=== PATIENT | female | born 1985 | race Caucasian/White ===

== ENCOUNTER 2023-01-14 14:10 | Day surgery (SDC) | payer BC | END 2023-01-14 14:35 | disposition home or self-care (01) | LOC: ONC/OP 14:10 | PROVIDERS: ATTEND Internal Medicine Hematology & Oncology | DX: Z48.00 Encounter for change or removal of nonsurgical wound dressing (principal) | CPT/HCPCS: 99211; G0463 ==

== ENCOUNTER 2023-01-18 09:12 | Day surgery (SDC) | payer BC ==
[~2023-01-18 09:12] MED LIST: CYTARABINE IVPB SCH; METHYLPREDNISOLONE SODIUM SUCC IVPB SCH; Ondansetron 2MG/ML MDV 10 MG in Sodium Chloride 0.9% 50 ML IVPB SCH; SODIUM CHLORIDE 0.9% IVPB SCH
[2023-01-18 10:20] VITALS: BP 106/56; TEMP 97.9
== END 2023-01-18 14:30 | disposition home or self-care (01) ==
LOC: ONC/OP 09:12
PROVIDERS: ATTEND Internal Medicine Hematology & Oncology
DX: C92.00 Acute myeloblastic leukemia, not having achieved remission (principal); Z88.1 Allergy status to other antibiotic agents
CPT/HCPCS: 80053; 82248; 83615; 84100; 84550; 96375; 96413; 96415

== ENCOUNTER 2023-01-19 08:30 | Day surgery (SDC) | payer BC ==
[~2023-01-19 08:30] MED LIST changes: +ADMIXTURE FEE IVPB SCH; +METHYLPREDNISOLONE SOD SUCC IVPB SCH; +Ondansetron HCl/PF 10 MG in Sodium Chloride 0.9% 50 ML IVPB SCH; +[UNRECOGNIZED DRUG - OTHER] IVPB SCH; +[UNRECOGNIZED DRUG - OTHER] IVPB SCH
[2023-01-19 09:04] VITALS: BP 114/68; TEMP 98.2
== END 2023-01-19 14:00 | disposition home or self-care (01) ==
LOC: ONC/OP 08:30
PROVIDERS: ATTEND Internal Medicine Hematology & Oncology
DX: C92.00 Acute myeloblastic leukemia, not having achieved remission (principal)
CPT/HCPCS: 96367; 96413; 96415; J1642; J2405; J2920; J3490; J7030; J9100

== ENCOUNTER 2023-01-20 08:38 | Day surgery (SDC) | payer BC ==
[~2023-01-20 08:38] MED LIST changes: -ADMIXTURE FEE IVPB SCH; -METHYLPREDNISOLONE SOD SUCC IVPB SCH; -Ondansetron HCl/PF 10 MG in Sodium Chloride 0.9% 50 ML IVPB SCH; -[UNRECOGNIZED DRUG - OTHER] IVPB SCH; -[UNRECOGNIZED DRUG - OTHER] IVPB SCH
[2023-01-20] MEDS ORDERED: [UNRECOGNIZED DRUG - OTHER] IVPB SCH (09:00)
[2023-01-20] MEDS ORDERED: METHYLPREDNISOLONE SODIUM SUCC IVPB SCH (09:00)
[2023-01-20] MEDS ORDERED: ADMIXTURE FEE IVPB SCH (09:00)
[2023-01-20 09:58] VITALS: BP 113/58; TEMP 98.2
[2023-01-20 10:39] LABS: #Monocytes 0.4 thou/uL (0.11-0.59); #Neutrophils 3.5 thou/uL (1.40-6.50); %Basophils 0.5 % (0.0-1.0); %Lymphocytes 3.9 % (21.0-51.0); %Monocytes 9.1 % (0.0-10.0); %Neutrophils 86.3 % (42.0-75.0); Hematocrit 34.9 % (36.0-47.0); Hemoglobin 11.7 g/dL (12.0-16.0); Mean Corpuscular HGB CONC 33.5 g/dL (32.0-36.0); Mean Corpuscular Hemoglobin 33.5 pg (27.0-31.0); Mean Platelet Volume 10.4 fL (7.4-10.4); Platelet Count 175 10x3/uL (130-400); RBC Distribution Width 17.7 % (11.5-14.5); Red Blood Cell (RBC) Count 3.49 mill/uL (4.20-5.40); White Blood Cell (WBC) Count 4.1 10x3/uL (4.8-10.8)
[2023-01-20 11:11] LABS: ALT (SGPT) 25 U/L (8-55); AST (SGOT) 22 U/L (5-34); Alkaline Phosphatase 48 U/L (40-110); Anion Gap 16 mmol/L (10-20); BUN (Urea Nitrogen) 11 mg/dL (7.0-18.7); Bilirubin, Total 0.7 mg/dL (0.2-1.2); Calc. Creatinine Clearance 0 mL/min (70-130); Calcium 8.7 mg/dL (7.8-10.44); Carbon Dioxide 25 mmol/L (22-29); Chloride 102 mmol/L (98-107); Estimated GFR 115; Globulin 2.7 g/dL (2.4-3.5); Glucose 106 mg/dL (70-105); Potassium 3.5 mmol/L (3.5-5.1); Protein, Total 6.7 g/dL (6.0-8.3); Sodium 139 mmol/L (136-145)
== END 2023-01-20 15:02 | disposition home or self-care (01) ==
LOC: ONC/OP 08:38
PROVIDERS: ATTEND Internal Medicine Hematology & Oncology
DX: C92.00 Acute myeloblastic leukemia, not having achieved remission (principal); Z88.1 Allergy status to other antibiotic agents
CPT/HCPCS: 80053; 85025; 96367; 96413; 96415; J2405; J2920; J3490; J7030; J9100

== ENCOUNTER 2023-02-04 08:47 | Day surgery (SDC) | payer BC ==
[2023-02-04] MEDS ORDERED: Acetaminophen 500 MG TAB PO SCH (09:15)
[2023-02-04] MEDS ORDERED: diphenhydrAMINE 25 MG CAP PO SCH (09:15)
[2023-02-04] MEDS ORDERED: Acetaminophen 500 MG TAB ONE (09:19)
[2023-02-04 10:34] VITALS: TEMP 98.7
[2023-02-04 13:48] VITALS: BP 108/63
== END 2023-02-04 13:24 | disposition home or self-care (01) ==
LOC: ONC/OP 08:47
PROVIDERS: ATTEND Internal Medicine Hematology & Oncology
DX: D64.9 Anemia, unspecified (principal); D69.59 Other secondary thrombocytopenia
CPT/HCPCS: 36430; 86850; 86900; 86901; 99212; G0463; P9016

== ENCOUNTER 2023-02-15 09:23 | Inpatient (IN) | payer BC ==
[2023-02-15] MEDS ORDERED: Ondansetron ODT 4 MG TAB PO PRN (10:05)
[2023-02-15] MEDS ORDERED: Calcium Carbonate 500 MG ChewTAB PO PRN (10:05)
[2023-02-15] MEDS ORDERED: Senokot S 8.6-50 MG TAB PO PRN (10:05)
[2023-02-15 11:26] LABS: Hematocrit 26.4 % (36.0-47.0); Hemoglobin 9.1 g/dL (12.0-16.0); Manual Diff?? YES; Mean Corpuscular HGB CONC 34.5 g/dL (32.0-36.0); Mean Corpuscular Hemoglobin 35.3 pg (27.0-31.0); Mean Corpuscular Volume 102.3 fl (78.0-98.0); Mean Platelet Volume 10.2 fL (7.4-10.4); Platelet Count 232 10x3/uL (130-400); RBC Distribution Width 20.2 % (11.5-14.5); Red Blood Cell (RBC) Count 2.58 mill/uL (4.20-5.40)
[2023-02-15 11:31] LABS: Delete Auto Diff?? YES
[2023-02-15 11:47] LABS: ALT (SGPT) 53 U/L (8-55); AST (SGOT) 35 U/L (5-34); Albumin 4.2 g/dL (3.5-5.0); Alkaline Phosphatase 62 U/L (40-110); Anion Gap 13 mmol/L (10-20); BUN (Urea Nitrogen) 6 mg/dL (7.0-18.7); Bilirubin, Total 0.2 mg/dL (0.2-1.2); Calc. Creatinine Clearance 152 mL/min (70-130); Carbon Dioxide 25 mmol/L (22-29); Chloride 105 mmol/L (98-107); Estimated GFR 117; Globulin 2.3 g/dL (2.4-3.5); Glucose 115 mg/dL (70-105); Potassium 3.6 mmol/L (3.5-5.1); Protein, Total 6.5 g/dL (6.0-8.3); Sodium 139 mmol/L (136-145); Uric Acid 4.2 mg/dL (2.6-6.0)
[2023-02-15 12:02] LABS: Anisocytosis SLIGHT = 6-15 cells HPF (0-5); Band 9 % (5-11); CellaVision Operator ID LAB.MJL; Eosinophils 1 % (0-10); Large Platelets 3.9 % (0-5); Lymphocytes 23 % (21-51); Macrocytosis SLIGHT = 6-15 cells HPF (0-5); Monocytes 22 % (0-10); Neutrophil 44 % (42-75); Nucleated RBC (Manual Ct) 1 % (0); Ovalocytes SLIGHT = 2-5 cells HPF (0-1); Platelet Adequacy Comment Platelets Normal; Poikilocytosis SLIGHT = 6-15 cells HPF (0-5); Polychromasia SLIGHT = 2-3 cells HPF (0-2); Reactive Lymphocytes 1 % (0-10); Tear Drops SLIGHT = 2-5 cells HPF (0-1); Total Cell Count 102
[2023-02-15] MEDS: METHYLPREDNISOLONE SODIUM SUCC IVPB SCH (13:18)
[2023-02-15] MEDS: SODIUM CHLORIDE 0.9% IVPB SCH ×2 (13:18→14:41)
[2023-02-15] MEDS: Ondansetron 2MG/ML MDV 10 MG in Sodium Chloride 0.9% 50 ML IVPB SCH (13:50)
[2023-02-15] MEDS: CYTARABINE IVPB SCH (14:41)
[2023-02-15] MEDS ORDERED: Acetaminophen 325 MG TAB PO PRN (15:55)
[2023-02-15] MEDS ORDERED: hydrOXYzine 25 MG TAB PO PRN (16:00)
[2023-02-15] MEDS ORDERED: HYDROcodone/Acetaminophen 5/325 mg Tablet PO PRN (16:00)
[2023-02-15] MEDS: Acyclovir 800 mg Tablet PO SCH (20:57)
[2023-02-15] MEDS: Cyanocobalamin (Vitamin B-12) 1,000 MCG TAB PO SCH (20:57)
[2023-02-15] MEDS: Folic Acid 1 MG TAB PO SCH (20:57)
[2023-02-15] MEDS: traMADol HCl 50 MG TAB PO PRN (20:58)
[2023-02-15] MEDS: Multivit, Therapeutic 1 TAB PO SCH (20:58)
[2023-02-15] MEDS: traZODone HCl 50 MG TAB PO SCH (21:01)
[2023-02-15] MEDS: Acetaminophen 325 MG TAB PO PRN (23:11)
[2023-02-16] MEDS: Ondansetron PF 4 MG/2 ML Vial IVP PRN (03:35)
[2023-02-16] MEDS: CYTARABINE IVPB SCH ×2 (03:38→16:03)
[2023-02-16] MEDS: SODIUM CHLORIDE 0.9% IVPB SCH ×3 (03:38→16:03)
[2023-02-16] MEDS ORDERED: Sevoflurane 250 ML INH ANEST BOTTLE ONE (04:19)
[2023-02-16] MEDS: LevoFLOXacin 500 MG TAB PO SCH (06:29)
[2023-02-16] MEDS: Levothyroxine 175 MCG TAB PO SCH (06:29)
[2023-02-16 07:15] LABS: #Monocytes 0.7 thou/uL (0.11-0.59); #Neutrophils 2.8 thou/uL (1.40-6.50); %Lymphocytes 6.2 % (21.0-51.0); %Monocytes 17.5 % (0.0-10.0); %Neutrophils 75.8 % (42.0-75.0); Hemoglobin 8.7 g/dL (12.0-16.0); Mean Corpuscular HGB CONC 34.8 g/dL (32.0-36.0); Mean Corpuscular Hemoglobin 35.2 pg (27.0-31.0); Mean Corpuscular Volume 101.2 fl (78.0-98.0); Mean Platelet Volume 10.2 fL (7.4-10.4); Platelet Count 215 10x3/uL (130-400); RBC Distribution Width 20.6 % (11.5-14.5); Red Blood Cell (RBC) Count 2.47 mill/uL (4.20-5.40); White Blood Cell (WBC) Count 3.7 10x3/uL (4.8-10.8)
[2023-02-16 07:55] LABS: Anion Gap 13 mmol/L (10-20); BUN (Urea Nitrogen) 6 mg/dL (7.0-18.7); Calc. Creatinine Clearance 174 mL/min (70-130); Calcium 8.9 mg/dL (7.8-10.44); Carbon Dioxide 24 mmol/L (22-29); Chloride 109 mmol/L (98-107); Estimated GFR 121; Glucose 98 mg/dL (70-105); Potassium 3.9 mmol/L (3.5-5.1); Sodium 142 mmol/L (136-145)
[2023-02-16] MEDS: Acetaminophen 325 MG TAB PO PRN (08:10)
[2023-02-16] MEDS: Citalopram 20 MG TAB PO SCH (08:10)
[2023-02-16] MEDS: Loratadine 10 MG TAB PO SCH (08:10)
[2023-02-16] MEDS: Montelukast Sodium 10 mg Tablet PO SCH (08:10)
[2023-02-16] MEDS: Acyclovir 800 mg Tablet PO SCH ×2 (08:11→19:54)
[2023-02-16] MEDS: traMADol HCl 50 MG TAB PO PRN ×2 (08:17→19:55)
[2023-02-16 10:49] VITALS: BMI 28.9
[2023-02-16] MEDS: Ondansetron 2MG/ML MDV 10 MG in Sodium Chloride 0.9% 50 ML IVPB SCH (14:43)
[2023-02-16] MEDS: METHYLPREDNISOLONE SODIUM SUCC IVPB SCH (15:26)
[2023-02-16] MEDS: Multivit, Therapeutic 1 TAB PO SCH (19:54)
[2023-02-16] MEDS: Cyanocobalamin (Vitamin B-12) 1,000 MCG TAB PO SCH (19:54)
[2023-02-16] MEDS: Folic Acid 1 MG TAB PO SCH (19:54)
[2023-02-16] MEDS: traZODone HCl 50 MG TAB PO SCH (19:55)
[2023-02-16] MEDS: Prochlorperazine Maleate 5 MG TAB PO PRN (22:14)
[2023-02-17] MEDS: Ondansetron PF 4 MG/2 ML Vial IVP PRN (03:50)
[2023-02-17] MEDS: CYTARABINE IVPB SCH ×2 (03:50→15:43)
[2023-02-17] MEDS: SODIUM CHLORIDE 0.9% IVPB SCH ×3 (03:50→15:43)
[2023-02-17] MEDS: Levothyroxine 175 MCG TAB PO SCH (05:41)
[2023-02-17] MEDS: LevoFLOXacin 500 MG TAB PO SCH (05:41)
[2023-02-17] MEDS: Acetaminophen 325 MG TAB PO PRN ×2 (07:49→17:54)
[2023-02-17] MEDS: traMADol HCl 50 MG TAB PO PRN ×2 (08:31→20:58)
[2023-02-17] MEDS: Loratadine 10 MG TAB PO SCH (08:31)
[2023-02-17] MEDS: Montelukast Sodium 10 mg Tablet PO SCH (08:31)
[2023-02-17] MEDS: Citalopram 20 MG TAB PO SCH (08:31)
[2023-02-17] MEDS: Acyclovir 800 mg Tablet PO SCH ×2 (08:31→21:00)
[2023-02-17] MEDS ORDERED: HYDROcodone/Acetaminophen 7.5/325 mg Tablet PO PRN (10:24)
[2023-02-17] MEDS: Ondansetron 2MG/ML MDV 10 MG in Sodium Chloride 0.9% 50 ML IVPB SCH (14:21)
[2023-02-17] MEDS: METHYLPREDNISOLONE SODIUM SUCC IVPB SCH (14:58)
[2023-02-17] MEDS: traZODone HCl 50 MG TAB PO SCH (20:58)
[2023-02-17] MEDS: Folic Acid 1 MG TAB PO SCH (20:58)
[2023-02-17] MEDS: Cyanocobalamin (Vitamin B-12) 1,000 MCG TAB PO SCH (21:00)
[2023-02-17] MEDS: Multivit, Therapeutic 1 TAB PO SCH (21:00)
[2023-02-18] MEDS ORDERED: PEGFILGRASTIM-JMDB 6 MG/0.6 ML SYRINGE SQ SCH (00:01)
[2023-02-18] MEDS: SODIUM CHLORIDE 0.9% IVPB SCH (04:08)
[2023-02-18] MEDS: Ondansetron PF 4 MG/2 ML Vial IVP PRN (04:08)
[2023-02-18] MEDS: CYTARABINE IVPB SCH (04:08)
[2023-02-18] MEDS: traMADol HCl 50 MG TAB PO PRN (04:50)
[2023-02-18] MEDS: Levothyroxine 175 MCG TAB PO SCH (06:02)
[2023-02-18] MEDS: LevoFLOXacin 500 MG TAB PO SCH (06:02)
[2023-02-18 07:50] LABS: #Neutrophils 3.3 thou/uL (1.40-6.50); %Lymphocytes 1.2 % (21.0-51.0); %Monocytes 0.3 % (0.0-10.0); %Neutrophils 97.9 % (42.0-75.0); Hematocrit 24.6 % (36.0-47.0); Hemoglobin 8.6 g/dL (12.0-16.0); Mean Corpuscular Hemoglobin 35.7 pg (27.0-31.0); Mean Corpuscular Volume 102.1 fl (78.0-98.0); Mean Platelet Volume 10.4 fL (7.4-10.4); Platelet Count 141 10x3/uL (130-400); RBC Distribution Width 19.7 % (11.5-14.5); Red Blood Cell (RBC) Count 2.41 mill/uL (4.20-5.40); White Blood Cell (WBC) Count 3.3 10x3/uL (4.8-10.8)
[2023-02-18 08:15] LABS: ALT (SGPT) 32 U/L (8-55); AST (SGOT) 24 U/L (5-34); Albumin 4.1 g/dL (3.5-5.0); Alkaline Phosphatase 53 U/L (40-110); Anion Gap 12 mmol/L (10-20); BUN (Urea Nitrogen) 7 mg/dL (7.0-18.7); Bilirubin, Total 0.5 mg/dL (0.2-1.2); Calc. Creatinine Clearance 181 mL/min (70-130); Calcium 8.7 mg/dL (7.8-10.44); Carbon Dioxide 24 mmol/L (22-29); Chloride 107 mmol/L (98-107); Estimated GFR 122; Globulin 2.1 g/dL (2.4-3.5); Glucose 85 mg/dL (70-105); Potassium 3.4 mmol/L (3.5-5.1); Protein, Total 6.2 g/dL (6.0-8.3); Sodium 140 mmol/L (136-145)
[2023-02-18] MEDS: Prochlorperazine Maleate 5 MG TAB PO PRN (08:30)
[2023-02-18 09:25] VITALS: BP 115/73; TEMP 98.2
[2023-02-18] MEDS: Loratadine 10 MG TAB PO SCH (10:01)
[2023-02-18] MEDS: Acyclovir 800 mg Tablet PO SCH (10:01)
[2023-02-18] MEDS: Montelukast Sodium 10 mg Tablet PO SCH (10:01)
[2023-02-18] MEDS: Citalopram 20 MG TAB PO SCH (10:01)
[2023-02-18] MEDS: Acetaminophen 325 MG TAB PO PRN (10:09)
[2023-02-18] MEDS ORDERED: Potassium Chloride 20 MEQ TAB PO SCH (11:15)
== END 2023-02-18 11:07 | disposition home or self-care (01) | DRG 838 ==
LOC: SURG B 09:23
PROVIDERS: ADMIT Internal Medicine; ATTEND Internal Medicine
DX: Z51.11 Encounter for antineoplastic chemotherapy (principal); C92.00 Acute myeloblastic leukemia, not having achieved remission; Q79.60 Ehlers-Danlos syndrome, unspecified; C73 Malignant neoplasm of thyroid gland; F41.9 Anxiety disorder, unspecified; J45.909 Unspecified asthma, uncomplicated; K21.9 Gastro-esophageal reflux disease without esophagitis; E03.9 Hypothyroidism, unspecified; D70.1 Agranulocytosis secondary to cancer chemotherapy; T45.1X5A Adverse effect of antineoplastic and immunosuppressive drugs, initial encounter; Z88.1 Allergy status to other antibiotic agents; Z88.8 Allergy status to other drugs, medicaments and biological substances; Z98.890 Other specified postprocedural states
CPT/HCPCS: 80048; 80053; 83615; 84550; 85025; J2405; J2920; J3490; J7050; J9100; Q0164

== ENCOUNTER 2023-02-23 11:36 | Day surgery (SDC) | payer BC ==
[2023-02-23] MEDS ORDERED: diphenhydrAMINE 25 MG CAP PO SCH (12:00)
[2023-02-23] MEDS ORDERED: Acetaminophen 500 MG TAB PO SCH (12:00)
[2023-02-23] MEDS ORDERED: Acetaminophen 500 MG TAB ONE (12:12)
[2023-02-23 14:46] VITALS: BP 105/53; TEMP 98.2
== END 2023-02-23 15:00 | disposition home or self-care (01) ==
LOC: ONC/OP 11:36
PROVIDERS: ATTEND Internal Medicine Hematology & Oncology
DX: D69.6 Thrombocytopenia, unspecified (principal)
CPT/HCPCS: 36430; 86850; 86900; 86901; P9035

== ENCOUNTER 2023-02-25 12:01 | Day surgery (SDC) | payer BC ==
[2023-02-25] MEDS ORDERED: Acetaminophen 500 MG TAB PO SCH (12:15)
[2023-02-25] MEDS ORDERED: diphenhydrAMINE 25 MG CAP PO SCH (12:15)
[2023-02-25] MEDS ORDERED: Acetaminophen 500 MG TAB ONE (12:52)
[2023-02-25 16:52] VITALS: TEMP 98.4
[2023-02-25 17:40] VITALS: BP 105/51
[2023-02-25] MEDS ORDERED: FLU VACC QS2023-24(6MOS UP)/PF 60 MCG/0.5 ML SYRINGE IM ONE (18:00)
== END 2023-02-25 17:44 | disposition home or self-care (01) ==
LOC: ONC/OP 12:01
PROVIDERS: ATTEND Internal Medicine Hematology & Oncology
DX: D64.9 Anemia, unspecified (principal); D69.6 Thrombocytopenia, unspecified; Z88.0 Allergy status to penicillin; Z88.1 Allergy status to other antibiotic agents
CPT/HCPCS: 36430; 86850; 86900; 86901; P9016; P9035

== ENCOUNTER 2023-02-28 08:45 | Day surgery (SDC) | payer BC ==
[2023-02-28] MEDS ORDERED: Acetaminophen 500 MG TAB PO SCH (09:15)
[2023-02-28] MEDS ORDERED: diphenhydrAMINE 25 MG CAP PO SCH (09:15)
[2023-02-28] MEDS ORDERED: Acetaminophen 500 MG TAB ONE (09:21)
[2023-02-28 14:31] VITALS: BP 103/56; TEMP 98.3
== END 2023-02-28 13:41 | disposition home or self-care (01) ==
LOC: ONC/OP 08:45
PROVIDERS: ATTEND Internal Medicine Hematology & Oncology
DX: D64.9 Anemia, unspecified (principal); D69.59 Other secondary thrombocytopenia
CPT/HCPCS: 36430; 86850; 86900; 86901; P9016; P9035

== ENCOUNTER 2023-03-04 09:00 | Day surgery (SDC) | payer BC ==
[2023-03-04] MEDS ORDERED: Acetaminophen 500 MG TAB PO SCH (09:45)
[2023-03-04] MEDS ORDERED: diphenhydrAMINE 25 MG CAP PO SCH (09:45)
[2023-03-04 11:06] VITALS: BP 98/49; TEMP 98.1
== END 2023-03-04 11:12 | disposition home or self-care (01) ==
LOC: ONC/OP 09:00
PROVIDERS: ATTEND Internal Medicine Hematology & Oncology
DX: D64.9 Anemia, unspecified (principal); D69.59 Other secondary thrombocytopenia
CPT/HCPCS: 36430; 86850; 86900; 86901; P9035

== ENCOUNTER 2023-03-07 08:54 | Day surgery (SDC) | payer BC ==
[2023-03-07] MEDS ORDERED: Acetaminophen 500 MG TAB ONE (09:52)
[2023-03-07] MEDS ORDERED: Acetaminophen 500 MG TAB PO SCH (10:00)
[2023-03-07] MEDS ORDERED: diphenhydrAMINE 25 MG CAP PO SCH (10:00)
[2023-03-07 12:19] VITALS: TEMP 99
[2023-03-07 12:46] VITALS: BP 114/55
== END 2023-03-07 12:47 | disposition home or self-care (01) ==
LOC: ONC/OP 08:54
PROVIDERS: ATTEND Internal Medicine Hematology & Oncology
DX: D64.9 Anemia, unspecified (principal); D69.59 Other secondary thrombocytopenia
CPT/HCPCS: 36430; 86850; 86900; 86901; P9016

== ENCOUNTER 2023-03-15 09:25 | Inpatient (IN) | payer BC ==
[2023-03-15 10:13] LABS: #Neutrophils 1.4 thou/uL (1.40-6.50); %Basophils 0.4 % (0.0-1.0); %Eosinophils 0.4 % (0.0-10.0); %Lymphocytes 14.1 % (21.0-51.0); %Monocytes 35.6 % (0.0-10.0); %Neutrophils 48.8 % (42.0-75.0); Hematocrit 26.7 % (36.0-47.0); Manual Diff?? YES; Mean Corpuscular HGB CONC 33.7 g/dL (32.0-36.0); Mean Corpuscular Hemoglobin 34.9 pg (27.0-31.0); Mean Corpuscular Volume 103.5 fl (78.0-98.0); Mean Platelet Volume 10.9 fL (7.4-10.4); Platelet Count 193 10x3/uL (130-400); RBC Distribution Width 20.6 % (11.5-14.5); Red Blood Cell (RBC) Count 2.58 mill/uL (4.20-5.40); White Blood Cell (WBC) Count 2.8 10x3/uL (4.8-10.8)
[2023-03-15] MEDS ORDERED: Acetaminophen 325 MG TAB PO PRN (10:17)
[2023-03-15] MEDS ORDERED: hydrOXYzine 25 MG TAB PO PRN (10:26)
[2023-03-15] MEDS ORDERED: HYDROcodone/Acetaminophen 5/325 mg Tablet PO PRN (10:29)
[2023-03-15 10:37] LABS: ALT (SGPT) 15 U/L (8-55); AST (SGOT) 20 U/L (5-34); Albumin 4.5 g/dL (3.5-5.0); Alkaline Phosphatase 54 U/L (40-110); Anion Gap 12 mmol/L (10-20); BUN (Urea Nitrogen) 6 mg/dL (7.0-18.7); Bilirubin, Total 0.4 mg/dL (0.2-1.2); Calc. Creatinine Clearance 0 mL/min (70-130); Calcium 8.8 mg/dL (7.8-10.44); Carbon Dioxide 22 mmol/L (22-29); Chloride 108 mmol/L (98-107); Estimated GFR 115; Globulin 2.5 g/dL (2.4-3.5); Glucose 85 mg/dL (70-105); Sodium 138 mmol/L (136-145); Uric Acid 4.7 mg/dL (2.6-6.0)
[2023-03-15 11:23] LABS: Anisocytosis MODERATE=16-30 cells HPF (0-5); Band 2 % (5-11); CellaVision Operator ID LAB.GE; Lymphocytes 19 % (21-51); Monocytes 33 % (0-10); Neutrophil 46 % (42-75); Platelet Adequacy Comment Platelets Normal; Polychromasia MODERATE = 3-4 cells HPF (0-2); Reactive Lymphocytes 1 % (0-10); Total Cell Count 101
[2023-03-15] MEDS: Ondansetron 2MG/ML MDV 10 MG in Sodium Chloride 0.9% 50 ML IVPB SCH (13:42)
[2023-03-15] MEDS: [UNRECOGNIZED DRUG - OTHER] IVPB SCH (14:16)
[2023-03-15] MEDS: METHYLPREDNISOLONE SODIUM SUCC IVPB SCH (14:16)
[2023-03-15] MEDS: ADMIXTURE FEE IVPB SCH (14:16)
[2023-03-15] MEDS: SODIUM CHLORIDE 0.9% IVPB SCH (15:08)
[2023-03-15] MEDS: CYTARABINE IVPB SCH (15:08)
[2023-03-15] MEDS: Acyclovir 800 mg Tablet PO SCH (21:26)
[2023-03-15] MEDS: traMADol HCl 50 MG TAB PO PRN (21:26)
[2023-03-15] MEDS: traZODone HCl 50 MG TAB PO SCH (21:26)
[2023-03-16] MEDS: Ondansetron PF 4 MG/2 ML Vial IVP PRN (03:34)
[2023-03-16] MEDS: CYTARABINE IVPB SCH ×2 (03:34→16:59)
[2023-03-16] MEDS: SODIUM CHLORIDE 0.9% IVPB SCH ×2 (03:34→16:59)
[2023-03-16] MEDS: Levothyroxine 175 MCG TAB PO SCH (06:15)
[2023-03-16] MEDS: traMADol HCl 50 MG TAB PO PRN ×2 (06:15→18:45)
[2023-03-16 07:18] LABS: #Monocytes 0.6 thou/uL (0.11-0.59); %Basophils 0.1 % (0.0-1.0); %Monocytes 8.8 % (0.0-10.0); %Neutrophils 88.5 % (42.0-75.0); Hematocrit 25.1 % (36.0-47.0); Hemoglobin 8.5 g/dL (12.0-16.0); Mean Corpuscular HGB CONC 33.9 g/dL (32.0-36.0); Mean Corpuscular Hemoglobin 35.3 pg (27.0-31.0); Mean Corpuscular Volume 104.1 fl (78.0-98.0); Mean Platelet Volume 10.9 fL (7.4-10.4); Platelet Count 184 10x3/uL (130-400); RBC Distribution Width 20.6 % (11.5-14.5); Red Blood Cell (RBC) Count 2.41 mill/uL (4.20-5.40); White Blood Cell (WBC) Count 6.8 10x3/uL (4.8-10.8)
[2023-03-16 07:41] LABS: ALT (SGPT) 13 U/L (8-55); AST (SGOT) 16 U/L (5-34); Albumin 4.1 g/dL (3.5-5.0); Alkaline Phosphatase 50 U/L (40-110); Anion Gap 11 mmol/L (10-20); BUN (Urea Nitrogen) 7 mg/dL (7.0-18.7); Bilirubin, Total 0.4 mg/dL (0.2-1.2); Calc. Creatinine Clearance 153 mL/min (70-130); Calcium 8.3 mg/dL (7.8-10.44); Carbon Dioxide 22 mmol/L (22-29); Chloride 112 mmol/L (98-107); Estimated GFR 116; Globulin 2.2 g/dL (2.4-3.5); Glucose 159 mg/dL (70-105); Potassium 3.8 mmol/L (3.5-5.1); Protein, Total 6.3 g/dL (6.0-8.3); Sodium 141 mmol/L (136-145); Uric Acid 4.9 mg/dL (2.6-6.0)
[2023-03-16] MEDS: Montelukast Sodium 10 mg Tablet PO SCH (09:08)
[2023-03-16] MEDS: Loratadine 10 MG TAB PO SCH (09:08)
[2023-03-16] MEDS: Citalopram 20 MG TAB PO SCH (09:08)
[2023-03-16] MEDS: Acyclovir 800 mg Tablet PO SCH ×2 (09:39→21:21)
[2023-03-16] MEDS: Ondansetron 2MG/ML MDV 10 MG in Sodium Chloride 0.9% 50 ML IVPB SCH (15:30)
[2023-03-16] MEDS: [UNRECOGNIZED DRUG - OTHER] IVPB SCH (16:15)
[2023-03-16] MEDS: ADMIXTURE FEE IVPB SCH (16:15)
[2023-03-16] MEDS: METHYLPREDNISOLONE SODIUM SUCC IVPB SCH (16:15)
[2023-03-16] MEDS: traZODone HCl 50 MG TAB PO SCH (21:21)
[2023-03-16] MEDS: Prochlorperazine Maleate 5 MG TAB PO PRN (21:21)
[2023-03-17] MEDS ORDERED: Calcium Carbonate 500 MG ChewTAB PO PRN (00:23)
[2023-03-17] MEDS: Ondansetron PF 4 MG/2 ML Vial IVP PRN (04:28)
[2023-03-17] MEDS: SODIUM CHLORIDE 0.9% IVPB SCH ×2 (04:29→16:02)
[2023-03-17] MEDS: CYTARABINE IVPB SCH ×2 (04:29→16:02)
[2023-03-17] MEDS: Levothyroxine 175 MCG TAB PO SCH (05:23)
[2023-03-17] MEDS: traMADol HCl 50 MG TAB PO PRN ×3 (05:23→22:02)
[2023-03-17 08:17] LABS: #Monocytes 0.2 thou/uL (0.11-0.59); #Neutrophils 2.8 thou/uL (1.40-6.50); %Lymphocytes 1.6 % (21.0-51.0); %Monocytes 5.6 % (0.0-10.0); %Neutrophils 92.1 % (42.0-75.0); Hematocrit 24.6 % (36.0-47.0); Hemoglobin 8.4 g/dL (12.0-16.0); Mean Corpuscular HGB CONC 34.1 g/dL (32.0-36.0); Mean Corpuscular Hemoglobin 35.7 pg (27.0-31.0); Mean Corpuscular Volume 104.7 fl (78.0-98.0); Mean Platelet Volume 10.9 fL (7.4-10.4); Platelet Count 153 10x3/uL (130-400); RBC Distribution Width 20.2 % (11.5-14.5); Red Blood Cell (RBC) Count 2.35 mill/uL (4.20-5.40); White Blood Cell (WBC) Count 3.1 10x3/uL (4.8-10.8)
[2023-03-17 08:39] LABS: ALT (SGPT) 17 U/L (8-55); AST (SGOT) 17 U/L (5-34); Albumin 4.2 g/dL (3.5-5.0); Alkaline Phosphatase 46 U/L (40-110); Anion Gap 12 mmol/L (10-20); BUN (Urea Nitrogen) 7 mg/dL (7.0-18.7); Bilirubin, Total 0.8 mg/dL (0.2-1.2); Calc. Creatinine Clearance 169 mL/min (70-130); Calcium 8.4 mg/dL (7.8-10.44); Carbon Dioxide 23 mmol/L (22-29); Chloride 109 mmol/L (98-107); Estimated GFR 119; Globulin 2.1 g/dL (2.4-3.5); Glucose 90 mg/dL (70-105); Protein, Total 6.3 g/dL (6.0-8.3); Sodium 140 mmol/L (136-145); Uric Acid 4.1 mg/dL (2.6-6.0)
[2023-03-17] MEDS ORDERED: NORETHINDRONE ACETATE 5 MG PO SCH (09:00)
[2023-03-17] MEDS: Loratadine 10 MG TAB PO SCH (09:06)
[2023-03-17] MEDS: Montelukast Sodium 10 mg Tablet PO SCH (09:06)
[2023-03-17] MEDS: Acyclovir 800 mg Tablet PO SCH ×2 (09:06→21:59)
[2023-03-17] MEDS: Citalopram 20 MG TAB PO SCH (09:06)
[2023-03-17] MEDS: Prochlorperazine Maleate 5 MG TAB PO PRN ×2 (10:58→21:59)
[2023-03-17] MEDS: Ondansetron 2MG/ML MDV 10 MG in Sodium Chloride 0.9% 50 ML IVPB SCH (15:00)
[2023-03-17] MEDS: ADMIXTURE FEE IVPB SCH (15:28)
[2023-03-17] MEDS: [UNRECOGNIZED DRUG - OTHER] IVPB SCH (15:28)
[2023-03-17] MEDS: METHYLPREDNISOLONE SODIUM SUCC IVPB SCH (15:28)
[2023-03-17] MEDS: traZODone HCl 50 MG TAB PO SCH (21:59)
[2023-03-18] MEDS ORDERED: PEGFILGRASTIM-JMDB 6 MG/0.6 ML SYRINGE SQ SCH (00:01)
[2023-03-18] MEDS: CYTARABINE IVPB SCH (04:56)
[2023-03-18] MEDS: Ondansetron PF 4 MG/2 ML Vial IVP PRN (04:56)
[2023-03-18] MEDS: SODIUM CHLORIDE 0.9% IVPB SCH (04:56)
[2023-03-18] MEDS ORDERED: CYTARABINE IVPB SCH (05:00)
[2023-03-18] MEDS ORDERED: SODIUM CHLORIDE 0.9% IVPB SCH (05:00)
[2023-03-18] MEDS: traMADol HCl 50 MG TAB PO PRN (05:05)
[2023-03-18] MEDS: Levothyroxine 175 MCG TAB PO SCH (05:05)
[2023-03-18 05:25] LABS: ALT (SGPT) 19 U/L (8-55); AST (SGOT) 19 U/L (5-34); Alkaline Phosphatase 47 U/L (40-110); Anion Gap 11 mmol/L (10-20); BUN (Urea Nitrogen) 6 mg/dL (7.0-18.7); Bilirubin, Total 0.9 mg/dL (0.2-1.2); Calc. Creatinine Clearance 163 mL/min (70-130); Calcium 8.6 mg/dL (7.8-10.44); Carbon Dioxide 24 mmol/L (22-29); Chloride 108 mmol/L (98-107); Estimated GFR 118; Globulin 2.5 g/dL (2.4-3.5); Glucose 100 mg/dL (70-105); Potassium 3.8 mmol/L (3.5-5.1); Protein, Total 6.5 g/dL (6.0-8.3); Sodium 139 mmol/L (136-145)
[2023-03-18 07:16] LABS: #Neutrophils 3.1 thou/uL (1.40-6.50); %Lymphocytes 1.3 % (21.0-51.0); %Neutrophils 98.4 % (42.0-75.0); Hematocrit 24.4 % (36.0-47.0); Hemoglobin 8.3 g/dL (12.0-16.0); Mean Corpuscular Hemoglobin 35.8 pg (27.0-31.0); Mean Corpuscular Volume 105.2 fl (78.0-98.0); Mean Platelet Volume 10.8 fL (7.4-10.4); Platelet Count 138 10x3/uL (130-400); RBC Distribution Width 19.7 % (11.5-14.5); Red Blood Cell (RBC) Count 2.32 mill/uL (4.20-5.40); White Blood Cell (WBC) Count 3.1 10x3/uL (4.8-10.8)
[2023-03-18 07:35] VITALS: BP 106/65; TEMP 98.8
[2023-03-18] MEDS: Citalopram 20 MG TAB PO SCH (09:17)
[2023-03-18] MEDS: Loratadine 10 MG TAB PO SCH (09:17)
[2023-03-18] MEDS: Montelukast Sodium 10 mg Tablet PO SCH (09:17)
[2023-03-18] MEDS: Acyclovir 800 mg Tablet PO SCH (09:17)
== END 2023-03-18 10:08 | disposition home or self-care (01) | DRG 838 ==
LOC: MSONC 09:25
PROVIDERS: ADMIT Internal Medicine; ATTEND Family Medicine
DX: Z51.11 Encounter for antineoplastic chemotherapy (principal); Q79.60 Ehlers-Danlos syndrome, unspecified; C92.00 Acute myeloblastic leukemia, not having achieved remission; F41.9 Anxiety disorder, unspecified; J45.909 Unspecified asthma, uncomplicated; E89.0 Postprocedural hypothyroidism; Z88.1 Allergy status to other antibiotic agents; Z88.8 Allergy status to other drugs, medicaments and biological substances; Z79.899 Other long term (current) drug therapy; Z79.890 Hormone replacement therapy; Z98.890 Other specified postprocedural states; Z85.850 Personal history of malignant neoplasm of thyroid
CPT/HCPCS: 80053; 83615; 84550; 85025; J2405; J2920; J3490; J7050; J9100; Q0164

== ENCOUNTER 2023-03-19 14:01 | Day surgery (SDC) | payer BC ==
[2023-03-19] MEDS ORDERED: PEGFILGRASTIM-JMDB 6 MG/0.6 ML SYRINGE SQ SCH (14:15)
[2023-03-19 14:42] VITALS: BP 112/61; TEMP 99
== END 2023-03-19 15:00 | disposition home or self-care (01) ==
LOC: ONC/OP 14:01
PROVIDERS: ATTEND Internal Medicine Hematology & Oncology
DX: C92.00 Acute myeloblastic leukemia, not having achieved remission (principal); N94.89 Other specified conditions associated with female genital organs and menstrual cycle; Z88.0 Allergy status to penicillin
CPT/HCPCS: 96372

== ENCOUNTER 2023-03-23 08:44 | Day surgery (SDC) | payer BC ==
[2023-03-23] MEDS ORDERED: diphenhydrAMINE 25 MG CAP PO SCH (09:00)
[2023-03-23] MEDS ORDERED: Acetaminophen 500 MG TAB PO SCH (09:00)
[2023-03-23] MEDS ORDERED: Acetaminophen 500 MG TAB ONE (09:09)
[2023-03-23 12:59] VITALS: BP 105/53; TEMP 98.3
== END 2023-03-23 12:59 | disposition home or self-care (01) ==
LOC: ONC/OP 08:44
PROVIDERS: ATTEND Internal Medicine Hematology & Oncology
DX: D64.9 Anemia, unspecified (principal); Z88.1 Allergy status to other antibiotic agents
CPT/HCPCS: 36430; 86850; 86900; 86901; P9016; P9035

== ENCOUNTER 2023-03-28 08:56 | Day surgery (SDC) | payer BC ==
[2023-03-28] MEDS ORDERED: Acetaminophen 500 MG TAB PO SCH (09:15)
[2023-03-28] MEDS ORDERED: diphenhydrAMINE 25 MG CAP PO SCH (09:15)
[2023-03-28] MEDS ORDERED: Acetaminophen 500 MG TAB ONE (09:50)
[2023-03-28 16:39] VITALS: BP 104/59; TEMP 98
== END 2023-03-28 16:46 | disposition home or self-care (01) ==
LOC: ONC/OP 08:56
PROVIDERS: ATTEND Internal Medicine Hematology & Oncology
DX: D64.9 Anemia, unspecified (principal); D69.59 Other secondary thrombocytopenia
CPT/HCPCS: 36430; 86850; 86900; 86901; P9016; P9035

== ENCOUNTER 2023-04-04 08:57 | Day surgery (SDC) | payer BC ==
[2023-04-04] MEDS ORDERED: Acetaminophen 500 MG TAB PO SCH (09:15)
[2023-04-04] MEDS ORDERED: diphenhydrAMINE 25 MG CAP PO SCH (09:15)
[2023-04-04] MEDS ORDERED: Acetaminophen 500 MG TAB ONE (09:44)
[2023-04-04 16:12] VITALS: BP 105/52; TEMP 98.5
== END 2023-04-04 15:23 | disposition home or self-care (01) ==
LOC: ONC/OP 08:57
PROVIDERS: ATTEND Internal Medicine Hematology & Oncology
DX: D64.9 Anemia, unspecified (principal); D69.59 Other secondary thrombocytopenia
CPT/HCPCS: 36430; 86850; 86900; 86901; J1642; P9016

== ENCOUNTER 2023-04-18 08:23 | Day surgery (SDC) | payer BC ==
[2023-04-18 08:45] LABS: Delete Auto Diff?? YES; Hematocrit 34.7 % (36.0-47.0); Hemoglobin 11.7 g/dL (12.0-16.0); Manual Diff?? YES; Mean Corpuscular HGB CONC 33.7 g/dL (32.0-36.0); Mean Corpuscular Hemoglobin 34.9 pg (27.0-31.0); Mean Corpuscular Volume 103.6 fl (78.0-98.0); Mean Platelet Volume 9.9 fL (7.4-10.4); Platelet Count 304 10x3/uL (130-400); RBC Distribution Width 21.5 % (11.5-14.5); Red Blood Cell (RBC) Count 3.35 mill/uL (4.20-5.40); White Blood Cell (WBC) Count 2.9 10x3/uL (4.8-10.8)
[2023-04-18 09:00] LABS: PTT 25.7 sec (22.9-36.1); Prothrombin Time 13.3 sec (12.0-14.7)
[2023-04-18 09:27] LABS: Anisocytosis SLIGHT = 6-15 cells HPF (0-5); Band 2 % (5-11); CellaVision Operator ID lab.dlt; Large Platelets 6.8 % (0-5); Lymphocytes 15 % (21-51); Macrocytosis SLIGHT = 6-15 cells HPF (0-5); Monocytes 24 % (0-10); Neutrophil 55 % (42-75); Platelet Adequacy Comment Platelets Normal; Poikilocytosis SLIGHT = 6-15 cells HPF (0-5); Polychromasia SLIGHT = 2-3 cells HPF (0-2); Reactive Lymphocytes 3 % (0-10); Schistocytes SLIGHT = 2-5 cells HPF (0-1); Tear Drops SLIGHT = 2-5 cells HPF (0-1); Total Cell Count 103
[2023-04-18 09:36] VITALS: BP 108/72; TEMP 98.7
== END 2023-04-18 12:05 | disposition home or self-care (01) ==
LOC: CT 08:23
PROVIDERS: ATTEND Internal Medicine Hematology & Oncology
PROC: 07DR3ZZ Extraction of Iliac Bone Marrow, Percutaneous Approach (ICD-10-PCS; principal; 2023-04-18)
DX: C92.00 Acute myeloblastic leukemia, not having achieved remission (principal); J44.9 Chronic obstructive pulmonary disease, unspecified; F41.9 Anxiety disorder, unspecified; F32.A Depression, unspecified; F12.11 Cannabis abuse, in remission; Q79.60 Ehlers-Danlos syndrome, unspecified; Z98.890 Other specified postprocedural states; Z90.89 Acquired absence of other organs; Z88.1 Allergy status to other antibiotic agents; Z79.890 Hormone replacement therapy; Z79.899 Other long term (current) drug therapy
CPT/HCPCS: 20225; 77002; 85025; 85097; 85610; 85730; 88184; 88237; 88305; 88311; 88313